=== PATIENT | female | born 1990 | race Caucasian/White ===

== ENCOUNTER 2021-07-10 13:50 | Emergency (ER) | payer OTHER ==
[2021-07-10] MEDS ORDERED: HYDROmorphone 0.5 MG/0.5 ML Syringe IVPUSH ONE (13:58)
[2021-07-10] MEDS ORDERED: Sodium Chloride 0.9% 10 ML Syringe FLUSH PRN (13:59)
[2021-07-10] MEDS ORDERED: Diphtheria,Pertussis(Acell),Tetanus Vaccine 0.5 ML Syringe IM ONE (14:02)
[2021-07-10] MEDS ORDERED: Lidocaine 1% 10 ML MDV INJECT ONE (15:03)
== END 2021-07-10 16:20 | disposition home or self-care (01) ==
LOC: JD.ED 13:50
DX: S91.115A Laceration without foreign body of left lesser toe(s) without damage to nail, initial encounter (principal); S80.12XA Contusion of left lower leg, initial encounter; Z86.16 Personal history of COVID-19; Z23 Encounter for immunization; W20.8XXA Other cause of strike by thrown, projected or falling object, initial encounter
CPT/HCPCS: 12001; 73590; 73630; 90471; 90715; 96374; 99284; J1170

== ENCOUNTER 2021-12-31 15:11 | Emergency (ER) | payer OTHER ==
[2021-12-31] MEDS ORDERED: Sodium Chloride 0.9% 10 ML Syringe FLUSH PRN (18:24)
[2021-12-31] MEDS ORDERED: HYDROmorphone 0.5 MG/0.5 ML Syringe IVPUSH ONE ×2 (18:49→21:24)
[2021-12-31] MEDS ORDERED: Ondansetron 4 MG/2 ML SDV IVPUSH ONE (18:49)
[2021-12-31 19:29] LABS: ESTIMATED GFR 119 mL/min (>60)
[2021-12-31] MEDS ORDERED: Sodium Chloride 0.9% 1,000 ML IV SCH (19:30)
== END 2021-12-31 22:47 | disposition home or self-care (01) ==
LOC: JD.ED 15:11
DX: B34.9 Viral infection, unspecified (principal); M43.6 Torticollis; Z86.16 Personal history of COVID-19; Z20.822 Contact with and (suspected) exposure to COVID-19
CPT/HCPCS: 36415; 80053; 82945; 83605; 83735; 85025; 85610; 85652; 85730; 86140; 86788; 86789; 87040; 87070; 87205; 87635; 89050; 96361; 96374; 96375; 96376; 99283; J1170; J2405; J3490; J7030; U0002